=== PATIENT | female | born 1980 | race Caucasian/White ===

== ENCOUNTER 2017-10-04 08:57 | Emergency (ER) | payer BC, OTHER ==
[2017-10-04] MEDS ORDERED: KETOROLAC TROMETHAMINE 60 MG/2 ML VIAL IM ONE (09:04)
--- NOTE | 2017-10-04 09:04 | PDOC ---
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 Began as pain over the lateral and posterior shoulder, progress to pain with numbness and a "heavy feeling" of her right arm, primarily the radial aspect. Review of systems: No headache, neck pain, other visual or focal neurologic symptoms, unsteadiness of gait. No chest pain, shortness of breath, abdominal pain, nausea, vomiting, diarrhea, urinary tract symptoms, vaginal bleeding or discharge. Past medical history: Healthy female, no active medical problems, however, takes hydrochlorothiazide 3 times per week 12.5 mg for bodybuilding. Has not taken any since last Monday. Social/family history reviewed and noncontributory except as noted above Physical exam: Alert and oriented well-developed well-nourished no acute distress cheerful and cooperative Afebrile, vital signs normal Head atraumatic. PERRLA, fundi benign, ENT clear Neck without point tenderness or deformity, full range of motion without pain Patient indicates pain over the right trapezius, right posterior shoulder, but there is no point tenderness, deformity, erythema, warmth, or other sign of inflammation. There are no axillary nodes or masses and no tenderness in the axilla. Lungs clear to P&A with full breath sounds throughout bilaterally, no rib cage or chest wall tenderness or deformity CV S1 and S2 normal without murmur rub or gallop pulses full and symmetric no JVD or edema no bruits Abdomen benign No pelvic or spine tenderness or deformity Neurological C2 to 12 intact. There is decreased strength in the right arm, wrist, and fingers. There is slightly decreased sensation over the C5-C6 distribution. It is stable and unimpaired. There are no other focal deficits Impression: Shoulder sprain, brachioplexus injury. No sign of central nervous system disease or neck injury or disease Plan: X-ray, symptomatic treatment, and follow-up. Patient has an appointment with her orthopedist this afternoon. 10/04/17 10:15 Past History - Past Medical History Allergies/Adverse Reactions: Allergies Allergy/AdvReac Type Severity Reaction Status Date / Time No Known Allergies Allergy Verified 10/04/17 09:29 Home Medications: Ambulatory Orders Acetaminophen W/ Codeine #3 [Tylenol # 3] 2 combo PO HS PRN #15 tablet MDD 2 Ibuprofen [Motrin -] 600 mg PO TID #20 tablet 10/04/17 - Surgical History Abdominal Surgery: Yes (LAP BAND APPROX 2YRS AGO) - Immunization History Td Vaccination: Yes Immunization Up to Date: No - Suicide/Smoking/Psychosocial Hx Smoking Status: No Smoking History: Never smoked Number of Cigarettes Smoked Daily: 0 Medical Decision Making - Medical Decision Making 10/04/17 10:16 X-ray: Negative Adequate pain relief with Toradol Sling applied. Has appointment with orthopedist later today. Continue anti- inflammatories and pain reliever for at night. Fully ambulatory and in no severe pain or other distress upon discharge to follow-up later today with records specialist. *DC/Admit/Observation/Transfer Diagnosis at time of Disposition: Brachial plexus injury, right Qualifiers: Encounter type: initial encounter Qualified Code(s): S14.3XXA - Injury of brachial plexus, initial encounter - Discharge Dispostion Disposition: HOME Condition at time of disposition: Improved Admit: No - Prescriptions Prescriptions: Acetaminophen W/ Codeine #3 [Tylenol # 3] 2 combo PO HS PRN #15 tablet MDD 2 PRN Reason: Severe Pain Ibuprofen [Motrin -] 600 mg PO TID #20 tablet - Referrals - Patient Instructions Printed Discharge Instructions: How to Use a Sling, Shoulder Sprain Additional Instructions: Rest, ice, anti-inflammatory medication as directed. See orthopedist as scheduled later today for further evaluation and treatment. - Post Discharge Activity
[2017-10-04 09:22] VITALS: BP 115/70; PULSE 77; TEMP 98.7; BMI 30.2
== END 2017-10-04 10:33 | disposition home or self-care (01) ==
LOC: FER 08:57
PROC: 3E0333Z Introduction of Anti-inflammatory into Peripheral Vein, Percutaneous Approach (ICD-10-PCS; principal; 2017-10-04)
DX: S14.3XXA Injury of brachial plexus, initial encounter (principal); X50.3XXA Overexertion from repetitive movements, initial encounter; Y93.B3 Activity, free weights; Y92.9 Unspecified place or not applicable; Z98.84 Bariatric surgery status
CPT/HCPCS: 73030-TC-RT; 84703; 99282-25